=== PATIENT | female | born 1990 | race African-American/Black ===

== ENCOUNTER 2017-01-01 00:06 | Emergency (ER) | payer MEDICAID ==
[~2017-01-01] VITALS: Ht 162.6 cm; Wt 80.3 kg
[~2017-01-01 00:06] MED LIST: ALBUTEROL SULF8.5 GM INH; CHERATUSSIN AC118 ML PO; GUAIFENESIN400 MG PO; MACROBID 100 M100 MG PO; NKM; ZITHROMAX250 MG ORAL
--- NOTE | 2017-01-01 00:34 | Emergency Room Report ---
History of Present Illness General Chief Complaint: Lower Extremity Injury Source: Patient Present Illness HPI Is a 26-year-old female with no past medical history. She presents with chief complaint of left great toe pain. Onset for 2 weeks but worse in the last 2 days. Pain is to the base of the metatarsal joint. Worse with movement. Worse with pushing off. No trauma. No fever or chills. Denies any other complaint. Pain is 9/10 when she walking. Allergies: Coded Allergies: No Known Allergies (Verified Allergy, Unknown, 01/21/08) Patient History Past Medical History: see triage record, old chart reviewed Past Surgical History: none Pertinent Family History: none Social History: Denies: smoking Last Menstrual Period: DEC 17 Now: No Immunizations: other Reviewed Nursing Documentation: PMH: Agreed, PSxH: Agreed Nursing Documentation-PMH Past Medical History: No Stated History Review of Systems Eye: Denies: eye pain, blurred vision ENT: Denies: ear pain, nose congestion, throat swelling Respiratory: Denies: cough, shortness of breath Cardiovascular: Denies: chest pain, palpitations Gastrointestinal: Denies: abdominal pain, diarrhea, nausea, vomiting Musculoskeletal: Reports: joint pain, Denies: back pain Skin: Denies: rash Neurological: Denies: headache, numbness Endocrine: Denies: increased thirst, increased urine Hematologic/Lymphatic: Denies: easy bruising All Other Systems: negative except mentioned in HPI Physical Exam Vital Signs Date Time Temp Pulse Resp B/P (MAP) Pulse Ox O2 Delivery O2 Flow Rate FiO2 01/01/17 00:18 98.2 88 18 145/92 98 vitals normal Sp02 EP Interpretation: reviewed, normal General Appearance: well appearing, no apparent distress, alert Head: normocephalic, atraumatic Eyes: bilateral eye PERRL, bilateral eye EOMI ENT: hearing grossly normal, normal pharynx Neck: full range of motion, supple, no meningismus Respiratory: chest non-tender, lungs clear, normal breath sounds Cardiovascular #1: regular rate, rhythm, no murmur Gastrointestinal: normal bowel sounds, non tender, no mass, no organomegaly, no bruit, non-distended Musculoskeletal: back normal, gait/station normal, normal range of motion, tender - To her over the base of the left first metatarsal joint. No edema. No breath. No redness. Dorsalis pedis pulse 2+. Psychiatric: mood/affect normal Skin: warm/dry Medical Decision Making Diagnostic Impression: Primary Impression: Toe joint pain Qualified Codes: M25.572 - Pain in left ankle and joints of left foot ER Course Toe with joint pain. No evidence of infection. Is not warm or has redness. Doubt gout. No evidence of septic joint. We'll discharge home. Other X-Ray Diagnostic Results Other X-Ray Diagnostic Results : X-Ray ordered: Left foot x-rays # of Views/Limited Vs Complete: 3 View Indication: Pain EP Interpretation: Yes Interpretation: no dislocation, no soft tissue swelling, no fractures Impression: No acute disease Interpreting ER Provider: Electronically signed by Primo George MD Last Vital Signs Date Time Temp Pulse Resp B/P (MAP) Pulse Ox O2 Delivery O2 Flow Rate FiO2 01/01/17 00:18 98.2 88 18 145/92 98 Status: improved Disposition: HOME, SELF-CARE Condition: Stable Scripts Ibuprofen* (MOTRIN*) 600 Mg Tablet 600 MG ORAL THREE TIMES A DAY, #30 TAB 0 Refills Prov: PRIMO GEORGE M.D. 01/01/17 Additional Instructions: Keep leg elevated as much as possible. Followup with your DrJulianna in 7 days. You may benefit from referred to see a flare breaker. Return if symptom worsen. PRIMO GEORGE M.D. Jan 01, 2017 00:34
[2017-01-01 00:36] VITALS: BP 145/92
[2017-01-01] MEDS ORDERED: IBUPROFEN600 MG ORAL (01:14)
[2017-01-01 01:36] VITALS: BP 139/85
[2017-01-01] MEDS ORDERED: Norco 5mg/325mg tab ORAL ONE (01:45)
[2017-01-01] MEDS ORDERED: Norco 5mg/325mg tab ONE (01:48)
[2017-01-01 01:55] VITALS: BP 139/85
--- NOTE | 2017-01-01 10:35 | Diagnostic Imaging Report ---
Indication: Pain Comparison: None Findings: 3 views of the left foot were obtained. No acute fractures, malalignment, erosions or periostitis are identified. Bone mineralization is within normal limits. Soft tissues are unremarkable. Impression: No acute findings
== END 2017-01-01 01:55 | disposition home or self-care (01) ==
LOC: EMR 00:39
DX: M25.572 Pain in left ankle and joints of left foot (principal); M79.675 Pain in left toe(s); M25.50 Pain in unspecified joint; M54.9 Dorsalgia, unspecified
CPT/HCPCS: 99284

== ENCOUNTER 2017-02-27 20:02 | Emergency (ER) | payer MEDICAID ==
[~2017-02-27] VITALS: Ht 165.1 cm; Wt 79.4 kg
[~2017-02-27 20:02] MED LIST changes: +IBUPROFEN600 MG ORAL
[2017-02-27] MEDS ORDERED: NKM (20:08)
[2017-02-27 20:13] VITALS: BP 146/86
--- NOTE | 2017-02-27 20:20 | Emergency Room Report ---
History of Present Illness General Chief Complaint: Complications Source: Patient Present Illness HPI The patient is a 26-year-old female presenting for vaginal bleeding and possibly . She states that last normal menstrual period was 02/08/17. She states that she has been sexual active with her boyfriend without protection or any contraceptive. She tested + preg at home 3 days ago and has had brown vaginal DC and spotting with urination. She also admits to vaginal itching. She denies abd pain, N, V, F, chills, back pain, foul odor discharge, dizziness, PLEITEZ, swelling Allergies: Coded Allergies: No Known Allergies (Verified Allergy, Unknown, 01/21/08) Patient History Past Medical History: see triage record Pertinent Family History: none Last Menstrual Period: 02/08/17 : 3 Para: 1 Reviewed Nursing Documentation: PMH: Agreed, PSxH: Agreed Nursing Documentation-PMH Past Medical History: No Stated History Review of Systems All Other Systems: negative except mentioned in HPI Physical Exam Vital Signs Date Time Temp Pulse Resp B/P (MAP) Pulse Ox O2 Delivery O2 Flow Rate FiO2 02/27/17 20:05 98.8 89 14 150/88 100 Room Air Sp02 EP Interpretation: reviewed, normal General Appearance: no apparent distress, alert, GCS 15, non-toxic Head: normocephalic, atraumatic Eyes: bilateral eye normal inspection, bilateral eye PERRL Gastrointestinal: normal bowel sounds, non tender, soft, non-distended, no guarding, no rebound Genitourinary: normal inspection, no CVA tenderness Musculoskeletal: back normal, gait/station normal, normal range of motion, non- tender Neurologic: alert, oriented x3, responsive, motor strength/tone normal, sensory intact, speech normal Psychiatric: judgement/insight normal, memory normal, mood/affect normal, no suicidal/homicidal ideation Skin: normal color, no rash, warm/dry, well hydrated Medical Decision Making PA Attestation Dr. Chavira is my supervising physician. Patient management was discussed with my supervising physician Diagnostic Impression: Primary Impression: BV (bacterial vaginosis) ER Course The patient is a 26-year-old female presenting for vaginal bleeding, discharge, and possibly . Differential diagnoses considered include but not limited to Early , threatened , UTI, BV, among others PE: Vitals WNL. NAD. Abdomen: Normal appearance. Non distended. No ecchymosis. Normal BS. Non TTP. No McBurney point tenderness. No guarding. No CVA tenderness UA: negative nitrites. + for squamous epithelial cells Urine preg: + The patient discharged home and told to followup with OB as soon as possible. She'll be treated with Flagyl. ER precautions are given Laboratory Tests Test 02/27/17 20:10 Urine Color Yellow Urine Appearance Slightly cloudy Urine pH 6.5 (4.5-8.0) Urine Specific Ferdinand 1.015 (1.005-1.035) Urine Protein Negative (NEGATIVE) Urine Glucose (UA) Negative (NEGATIVE) Urine Ketones Negative (NEGATIVE) Urine Occult Blood 2+ (NEGATIVE) H Urine Nitrite Negative (NEGATIVE) Urine Bilirubin Negative (NEGATIVE) Urine Urobilinogen Normal MG/DL (0.0-1.0) Urine Leukocyte Esterase 1+ (NEGATIVE) H Urine RBC 0-2 /HPF (0 - 2) Urine WBC 2-4 /HPF (0 - 2) Urine Squamous Epithelial Cells Moderate /LPF (NONE/OCC) H Urine Bacteria Few /HPF (NONE) Urine HCG, Qualitative Positive Lab Results Impression UA: negative nitrites. + for squamous epithelial cells Urine preg: + Last Vital Signs Date Time Temp Pulse Resp B/P (MAP) Pulse Ox O2 Delivery O2 Flow Rate FiO2 02/27/17 20:13 98.8 15 146/86 100 Room Air 02/27/17 20:05 89 Status: improved Disposition: HOME, SELF-CARE Condition: Improved Scripts Metronidazole* (FLAGYL*) 500 Mg Tablet 500 MG ORAL BID, #14 TAB 0 Refills Prov: DULCE SWEET 02/27/17 DULCE SWEET Feb 27, 2017 20:20
[2017-02-27 20:32] LABS: APPEARANCE,URINE SLIGHTLY CLOUDY; KETONES,URINE NEGATIVE (NEGATIVE); LEUKOCYTE ESTERASE ,URINE 1+ (NEGATIVE); NITRITE,URINE NEGATIVE (NEGATIVE); PH,URINE 6.5 (4.5-8.0); PROTEIN,URINE NEGATIVE (NEGATIVE); UROBILINOGEN,URINE NORMAL MG/DL (0.0-1.0)
[2017-02-27 20:43] LABS: RBC,URINE 0-2 /HPF (0 - 2)
[2017-02-27 20:44] LABS: BACTERIA,URINE FEW /HPF; SQUAMOUS EPITHELIAL CELL,UR MODERATE /LPF (NONE/OCC)
[2017-02-27] MEDS ORDERED: METRONIDAZOLE500 MG ORAL (20:57)
[2017-02-27 21:03] VITALS: BP 146/86
== END 2017-02-27 21:03 | disposition home or self-care (01) ==
LOC: EMR 20:30
DX: N76.0 Acute vaginitis (principal); N93.9 Abnormal uterine and vaginal bleeding, unspecified
CPT/HCPCS: 81003; 81025; 99283

== ENCOUNTER 2017-03-12 18:26 | Emergency (ER) | payer MEDICAID ==
[~2017-03-12] VITALS: Ht 165.1 cm; Wt 77.6 kg
[~2017-03-12 18:26] MED LIST changes: +METRONIDAZOLE500 MG ORAL
[2017-03-12 19:11] LABS: BASOPHILS % (AUTO) 0.7 % (0.0-2.0); EOSINOPHILS % (AUTO) 0.2 % (0.0-3.0); HEMATOCRIT 40.8 % (37.0-47.0); HEMOGLOBIN 12.4 G/DL (12.0-16.0); LYMPHOCYTES % (AUTO) 26.1 % (20.0-45.0); MEAN CORPUSCULAR VOLUME 90 FL (80-99); MONOCYTES % (AUTO) 4.9 % (1.0-10.0); NEUTROPHILS % (AUTO) 68.2 % (45.0-75.0); PLATELET COUNT 255 K/UL (150-450); RED BLOOD COUNT 4.54 M/UL (4.20-5.40); RED CELL DISTRIBUTION WIDTH 11.6 % (11.6-14.8); WHITE BLOOD COUNT 12.6 K/UL (4.8-10.8)
[2017-03-12 19:27] LABS: ANION GAP 10 mmol/L (5-15); BLOOD UREA NITROGEN 8 mg/dL (7-18); CALCIUM 9.5 MG/DL (8.5-10.1); CARBON DIOXIDE 25 MMOL/L (21-32); CHLORIDE 104 MMOL/L (98-107); POTASSIUM 3.5 MMOL/L (3.5-5.1); SODIUM 139 MMOL/L (136-145)
[2017-03-12 19:31] LABS: ALANINE AMINOTRANSFERASE 17 U/L (12-78); ALBUMIN 3.9 G/DL (3.4-5.0); ALBUMIN/GLOBULIN RATIO 0.8 (1.0-2.7); ALKALINE PHOSPHATASE 84 U/L (46-116); ASPARTATE AMINO TRANSFERASE 13 U/L (15-37); BILIRUBIN,TOTAL 0.5 MG/DL (0.2-1.0)
[2017-03-12 22:00] VITALS: BP 113/64
[2017-03-12 22:05] VITALS: BP 113/64
--- NOTE | 2017-03-13 10:30 | Diagnostic Imaging Report ---
Indication:Pelvic pain Technique: Grayscale and duplex Doppler imaging of the pelvis performed utilizing a transabdominal scan and endovaginal scan. Comparison: None Findings: No intrauterine demonstrated. A 6 mm endometrial stripe demonstrated. Uterus is mildly heterogeneous. There is a 1.2 cm echogenic focus in the right ovary likely a hemorrhagic cyst. Follicles noted in addition within the right ovary. Definite extraovarian mass is not visualized. However there is a small moderate free fluid with echoes suggestive of hemoperitoneum. This could be due to a rupture of a hemorrhagic cyst. Ectopic is not excluded. Please correlate clinically and obtain followup is needed. There is a 1.5 cm left ovarian cyst noted. Impression: Findings suggestive of hemoperitoneum with low-level echoes within the free fluid in the cul-de-sac. No intrauterine demonstrated. Possibility of ectopic should be considered. No adnexal mass distally seen. Please correlate with quantitative beta-hCG. Followup recommended. Small echogenic focus in the right ovary probably hemorrhagic cyst. Simple cyst 1.5 CM in the left ovary. [facility] has communicated the preliminary results to the Emergency Department. Their findings are largely concordant with this report.
--- NOTE | 2017-03-14 22:22 | Emergency Room Report ---
History of Present Illness General Chief Complaint: Complications Source: Patient Present Illness HPI 26-year-old female presents ED for evaluation. Patient states that last week she had some lower abdominal pain and has some tissue clots. She states she is . Was seen at [facility] today and it did not sound cannot find anything. Was told that she may have an ectopic I was asked to come to the emergency room. Patient denies any abdominal pain at this time. Denies any bleeding or discharge. No other aggravating relieving factors. Denies any other associated symptoms Allergies: Coded Allergies: No Known Allergies (Verified Allergy, Unknown, 01/21/08) Patient History Past Medical History: none Past Surgical History: none Pertinent Family History: none Social History: Denies: smoking, alcohol use, drug use Last Menstrual Period: 02/08/17 Now: No Immunizations: UTD Reviewed Nursing Documentation: PMH: Agreed, PSxH: Agreed Nursing Documentation-PMH Past Medical History: No Stated History Review of Systems All Other Systems: negative except mentioned in HPI Physical Exam Vital Signs Date Time Temp Pulse Resp B/P (MAP) Pulse Ox O2 Delivery O2 Flow Rate FiO2 03/12/17 18:31 98.2 91 18 122/82 100 Room Air Sp02 EP Interpretation: reviewed, normal General Appearance: no apparent distress, alert, GCS 15, non-toxic Head: normocephalic, atraumatic Eyes: bilateral eye normal inspection, bilateral eye PERRL ENT: hearing grossly normal, normal pharynx, no angioedema, normal voice Neck: full range of motion, supple/symm/no masses Respiratory: chest non-tender, lungs clear, normal breath sounds, speaking full sentences Cardiovascular #1: regular rate, rhythm, no edema Cardiovascular #2: 2+ carotid (R), 2+ carotid (L), 2+ radial (R), 2+ radial (L) , 2+ dorsalis pedis (R), 2+ dorsalis pedis (L) Gastrointestinal: normal bowel sounds, non tender, soft, non-distended, no guarding, no rebound Rectal: deferred Genitourinary: normal inspection, no CVA tenderness Musculoskeletal: back normal, gait/station normal, normal range of motion, non- tender Neurologic: alert, oriented x3, responsive, motor strength/tone normal, sensory intact, speech normal Psychiatric: judgement/insight normal, memory normal, mood/affect normal, no suicidal/homicidal ideation Reflexes: 3+ bicep (R), 3+ bicep (L), 3+ tricep (R), 3+ tricep (L), 3+ knee (R) , 3+ knee (L) Skin: normal color, no rash, warm/dry, well hydrated Lymphatic: no adenopathy Medical Decision Making Diagnostic Impression: Primary Impression: Complication of Qualified Codes: O26.91 - related conditions, unspecified, first trimester ER Course Hospital Course 26-year-old female presents to ED for evaluation. Since by family practice clinic to rule out ectopic emergency Differential diagnoses include: gastrits, gastroenterits, ectopic , ovarian torsion/cyst, UTI Clinical course Patient placed on stretcher in ED. After initial history and physical I ordered labs, IV fluids and pelvic ultrasound. Labs-no leukocytosis, electrolytes okay, beta hCG > 8000 Pelvic ultrasound- no IUP detected, no obvious adenxal mass noted, but concern of ectopic should be considered I spoke to INNER TUBE TUBER MACHINE OPERATOR Dr Beard. Given that patient has no pain or bleeding, patient can be safely discharged with outpatient followup. Discussed findings with the patient and she will followup with INNER TUBE TUBER MACHINE OPERATOR Diagnosis - complication of Stable and discharged to home. Followup with PMD/INNER TUBE TUBER MACHINE OPERATOR. Return to ED if symptoms recur or worsen Labs Test 03/12/17 18:50 White Blood Count 12.6 K/UL (4.8-10.8) Red Blood Count 4.54 M/UL (4.20-5.40) Hemoglobin 12.4 G/DL (12.0-16.0) Hematocrit 40.8 % (37.0-47.0) Mean Corpuscular Volume 90 FL (80-99) Mean Corpuscular Hemoglobin 27.4 PG (27.0-31.0) Mean Corpuscular Hemoglobin Concent 30.5 G/DL (32.0-36.0) Red Cell Distribution Width 11.6 % (11.6-14.8) Platelet Count 255 K/UL (150-450) Mean Platelet Volume 7.2 FL (6.5-10.1) Neutrophils (%) (Auto) 68.2 % (45.0-75.0) Lymphocytes (%) (Auto) 26.1 % (20.0-45.0) Monocytes (%) (Auto) 4.9 % (1.0-10.0) Eosinophils (%) (Auto) 0.2 % (0.0-3.0) Basophils (%) (Auto) 0.7 % (0.0-2.0) Prothrombin Time 10.3 SEC (9.30-11.50) Prothromb Time International Ratio 1.0 (0.9-1.1) Activated Partial Thromboplast Time 27 SEC (23-33) Sodium Level 139 MMOL/L (136-145) Potassium Level 3.5 MMOL/L (3.5-5.1) Chloride Level 104 MMOL/L (98-107) Carbon Dioxide Level 25 MMOL/L (21-32) Anion Gap 10 mmol/L (5-15) Blood Urea Nitrogen 8 mg/dL (7-18) Creatinine 1.0 MG/DL (0.55-1.30) Estimat Glomerular Filtration Rate > 60 mL/min (>60) Glucose Level 90 MG/DL (74-106) Calcium Level 9.5 MG/DL (8.5-10.1) Total Bilirubin 0.5 MG/DL (0.2-1.0) Aspartate Amino Transf (AST/SGOT) 13 U/L (15-37) Alanine Aminotransferase (ALT/SGPT) 17 U/L (12-78) Alkaline Phosphatase 84 U/L (46-116) Total Protein 8.5 G/DL (6.4-8.2) Albumin 3.9 G/DL (3.4-5.0) Globulin 4.6 g/dL Albumin/Globulin Ratio 0.8 (1.0-2.7) Lipase 104 U/L (73-393) Human Chorionic Gonadotropin, Quant 8616 mIU/mL (1-6) CT/MRI/US Diagnostic Results CT/MRI/US Diagnostic Results : Imaging Test Ordered: OB US Impression Findings suggestive of hemoperitoneum with low-level echoes within the free fluid in the cul-de-sac. No intrauterine demonstrated. Possibility of ectopic should be considered. No adnexal mass distally seen. Please correlate with quantitative beta-hCG. Followup recommended. Small echogenic focus in the right ovary probably hemorrhagic cyst. Simple cyst 1.5 CM in the left ovary. Last Vital Signs Date Time Temp Pulse Resp B/P (MAP) Pulse Ox O2 Delivery O2 Flow Rate FiO2 03/12/17 22:05 98.4 61 14 113/64 97 Room Air Status: improved Disposition: HOME, SELF-CARE Condition: Stable Referrals: Kaelyn SARABIAREFERRING (PCP) EMMANUEL BEARD Patient Instructions: Ectopic , [id number] CAIN MOSQUEDA M.D. Mar 14, 2017 22:22
--- NOTE | 2017-03-14 22:22 | Emergency Room Report ---
History of Present Illness General Chief Complaint: Complications Source: Patient Present Illness HPI 26-year-old female presents ED for evaluation. Patient states that last week she had some lower abdominal pain and has some tissue clots. She states she is . Was seen at [facility] today and it did not sound cannot find anything. Was told that she may have an ectopic I was asked to come to the emergency room. Patient denies any abdominal pain at this time. Denies any bleeding or discharge. No other aggravating relieving factors. Denies any other associated symptoms Allergies: Coded Allergies: No Known Allergies (Verified Allergy, Unknown, 01/21/08) Patient History Past Medical History: none Past Surgical History: none Pertinent Family History: none Social History: Denies: smoking, alcohol use, drug use Last Menstrual Period: 02/08/17 Now: No Immunizations: UTD Reviewed Nursing Documentation: PMH: Agreed, PSxH: Agreed Nursing Documentation-PMH Past Medical History: No Stated History Review of Systems All Other Systems: negative except mentioned in HPI Physical Exam Vital Signs Date Time Temp Pulse Resp B/P (MAP) Pulse Ox O2 Delivery O2 Flow Rate FiO2 03/12/17 18:31 98.2 91 18 122/82 100 Room Air Sp02 EP Interpretation: reviewed, normal General Appearance: no apparent distress, alert, GCS 15, non-toxic Head: normocephalic, atraumatic Eyes: bilateral eye normal inspection, bilateral eye PERRL ENT: hearing grossly normal, normal pharynx, no angioedema, normal voice Neck: full range of motion, supple/symm/no masses Respiratory: chest non-tender, lungs clear, normal breath sounds, speaking full sentences Cardiovascular #1: regular rate, rhythm, no edema Cardiovascular #2: 2+ carotid (R), 2+ carotid (L), 2+ radial (R), 2+ radial (L) , 2+ dorsalis pedis (R), 2+ dorsalis pedis (L) Gastrointestinal: normal bowel sounds, non tender, soft, non-distended, no guarding, no rebound Rectal: deferred Genitourinary: normal inspection, no CVA tenderness Musculoskeletal: back normal, gait/station normal, normal range of motion, non- tender Neurologic: alert, oriented x3, responsive, motor strength/tone normal, sensory intact, speech normal Psychiatric: judgement/insight normal, memory normal, mood/affect normal, no suicidal/homicidal ideation Reflexes: 3+ bicep (R), 3+ bicep (L), 3+ tricep (R), 3+ tricep (L), 3+ knee (R) , 3+ knee (L) Skin: normal color, no rash, warm/dry, well hydrated Lymphatic: no adenopathy Medical Decision Making Diagnostic Impression: Primary Impression: Complication of Qualified Codes: O26.91 - related conditions, unspecified, first trimester ER Course Hospital Course 26-year-old female presents to ED for evaluation. Since by family practice clinic to rule out ectopic emergency Differential diagnoses include: gastrits, gastroenterits, ectopic , ovarian torsion/cyst, UTI Clinical course Patient placed on stretcher in ED. After initial history and physical I ordered labs, IV fluids and pelvic ultrasound. Labs-no leukocytosis, electrolytes okay, beta hCG > 8000 Pelvic ultrasound- no IUP detected, no obvious adenxal mass noted, but concern of ectopic should be considered I spoke to LINOLEUM INSTALLER Dr Beard. Given that patient has no pain or bleeding, patient can be safely discharged with outpatient followup. Discussed findings with the patient and she will followup with LINOLEUM INSTALLER Diagnosis - complication of Stable and discharged to home. Followup with PMD/LINOLEUM INSTALLER. Return to ED if symptoms recur or worsen Labs Test 03/12/17 18:50 White Blood Count 12.6 K/UL (4.8-10.8) Red Blood Count 4.54 M/UL (4.20-5.40) Hemoglobin 12.4 G/DL (12.0-16.0) Hematocrit 40.8 % (37.0-47.0) Mean Corpuscular Volume 90 FL (80-99) Mean Corpuscular Hemoglobin 27.4 PG (27.0-31.0) Mean Corpuscular Hemoglobin Concent 30.5 G/DL (32.0-36.0) Red Cell Distribution Width 11.6 % (11.6-14.8) Platelet Count 255 K/UL (150-450) Mean Platelet Volume 7.2 FL (6.5-10.1) Neutrophils (%) (Auto) 68.2 % (45.0-75.0) Lymphocytes (%) (Auto) 26.1 % (20.0-45.0) Monocytes (%) (Auto) 4.9 % (1.0-10.0) Eosinophils (%) (Auto) 0.2 % (0.0-3.0) Basophils (%) (Auto) 0.7 % (0.0-2.0) Prothrombin Time 10.3 SEC (9.30-11.50) Prothromb Time International Ratio 1.0 (0.9-1.1) Activated Partial Thromboplast Time 27 SEC (23-33) Sodium Level 139 MMOL/L (136-145) Potassium Level 3.5 MMOL/L (3.5-5.1) Chloride Level 104 MMOL/L (98-107) Carbon Dioxide Level 25 MMOL/L (21-32) Anion Gap 10 mmol/L (5-15) Blood Urea Nitrogen 8 mg/dL (7-18) Creatinine 1.0 MG/DL (0.55-1.30) Estimat Glomerular Filtration Rate > 60 mL/min (>60) Glucose Level 90 MG/DL (74-106) Calcium Level 9.5 MG/DL (8.5-10.1) Total Bilirubin 0.5 MG/DL (0.2-1.0) Aspartate Amino Transf (AST/SGOT) 13 U/L (15-37) Alanine Aminotransferase (ALT/SGPT) 17 U/L (12-78) Alkaline Phosphatase 84 U/L (46-116) Total Protein 8.5 G/DL (6.4-8.2) Albumin 3.9 G/DL (3.4-5.0) Globulin 4.6 g/dL Albumin/Globulin Ratio 0.8 (1.0-2.7) Lipase 104 U/L (73-393) Human Chorionic Gonadotropin, Quant 8616 mIU/mL (1-6) CT/MRI/US Diagnostic Results CT/MRI/US Diagnostic Results : Imaging Test Ordered: OB US Impression Findings suggestive of hemoperitoneum with low-level echoes within the free fluid in the cul-de-sac. No intrauterine demonstrated. Possibility of ectopic should be considered. No adnexal mass distally seen. Please correlate with quantitative beta-hCG. Followup recommended. Small echogenic focus in the right ovary probably hemorrhagic cyst. Simple cyst 1.5 CM in the left ovary. Last Vital Signs Date Time Temp Pulse Resp B/P (MAP) Pulse Ox O2 Delivery O2 Flow Rate FiO2 03/12/17 22:05 98.4 61 14 113/64 97 Room Air Status: improved Disposition: HOME, SELF-CARE Condition: Stable Referrals: Kaelyn SARABIAREFERRING (PCP) EMMANUEL BEARD Patient Instructions: Ectopic , [id number] CAIN MOSQUEDA M.D. Mar 14, 2017 22:22
== END 2017-03-12 22:05 | disposition home or self-care (01) ==
LOC: EMR 18:35
DX: O26.891 Other specified pregnancy related conditions, first trimester (principal); R10.9 Unspecified abdominal pain
CPT/HCPCS: 36415; 76801; 76830; 80053; 83690; 84702; 85025; 85610; 85730; 96360; 99284

== ENCOUNTER 2017-03-20 04:35 | Emergency (ER) | payer MEDICAID ==
[~2017-03-20] VITALS: Ht 165.1 cm; Wt 77.1 kg
[2017-03-20] VITALS (13 sets, daily range): BP systolic 100–124; BP diastolic 57–79
[2017-03-20] MEDS ORDERED: Morphine Sulfate 4mg/ml Inj IVP ONE ×2 (04:45→07:00)
--- NOTE | 2017-03-20 04:49 | Emergency Room Report ---
History of Present Illness General Chief Complaint: Abdominal Pain Source: Patient Present Illness HPI This is a 26-year-old female 5 para 1 who presents with chief complaint abdominal pain. She was here several weeks ago for positive . Beta hCG here was in the 8000 but ultrasound show small amount of blood in the pelvis no IUP. She did not have any pain and never followup with [employer]. She woke up about 2 hours ago with severe lower trauma pain. Pain is sharp. No bleeding. No nausea no vomiting. Denies any trauma. Pain is 10 out of 10. Allergies: Coded Allergies: No Known Allergies (Verified , 01/21/08) Patient History Past Medical History: see triage record, old chart reviewed Past Surgical History: other Pertinent Family History: none Social History: Denies: smoking Last Menstrual Period: Feb Now: No Immunizations: other Reviewed Nursing Documentation: PMH: Agreed, PSxH: Agreed Nursing Documentation-PMH Hx Cardiac Problems: Yes Review of Systems Eye: Denies: eye pain, blurred vision ENT: Denies: ear pain, nose congestion, throat swelling Respiratory: Denies: cough, shortness of breath Cardiovascular: Denies: chest pain, palpitations Gastrointestinal: Reports: abdominal pain, Denies: diarrhea, nausea, vomiting Musculoskeletal: Denies: back pain, joint pain Skin: Denies: rash Neurological: Denies: headache, numbness Endocrine: Denies: increased thirst, increased urine Hematologic/Lymphatic: Denies: easy bruising All Other Systems: negative except mentioned in HPI Physical Exam Vital Signs Date Time Temp Pulse Resp B/P (MAP) Pulse Ox O2 Delivery O2 Flow Rate FiO2 03/20/17 04:31 99.0 81 17 145/97 97 Room Air vitals normal Sp02 EP Interpretation: reviewed, normal General Appearance: well appearing, no apparent distress, alert Head: normocephalic, atraumatic Eyes: bilateral eye PERRL, bilateral eye EOMI ENT: hearing grossly normal, normal pharynx Neck: full range of motion, supple, no meningismus Respiratory: chest non-tender, lungs clear, normal breath sounds Cardiovascular #1: regular rate, rhythm, no murmur Gastrointestinal: normal bowel sounds, no mass, no organomegaly, no bruit, non- distended, tenderness - Mild, diffuse Musculoskeletal: back normal, gait/station normal, normal range of motion Psychiatric: mood/affect normal Skin: warm/dry Medical Decision Making Diagnostic Impression: Primary Impression: Ruptured ectopic ER Course Patient presents with acute pelvic/abdominal pain. Her beta-hCG dropped from 8616 to 5291. Ultrasound today showed moderate amount of hemorrhage in the left pelvic area and blood around the uterus. There was small amount of lead in the abdomen. This is concerning for ruptured ectopic. Patient has been hemodynamically stable. Dr. Wilhelm, her [employer] SUPERVISOR, paged. I will sign out to Dr. De Paz for final disposition Lab Results Impression labs unremarkable except for hCG of 5291 CT/MRI/US Diagnostic Results CT/MRI/US Diagnostic Results : Imaging Test Ordered: Pelvic US Impression read by trouble clerk. Moderate amount of blood around the left adnexal and uterus. Small amount of blood in the pelvis. Last Vital Signs Date Time Temp Pulse Resp B/P (MAP) Pulse Ox O2 Delivery O2 Flow Rate FiO2 03/20/17 04:31 99.0 81 17 145/97 97 Room Air Status: improved Disposition: ADMITTED INPATIENT Condition: Serious AMBROSE GRANT M.D. Mar 20, 2017 04:49
[2017-03-20 05:04] LABS: BASOPHILS % (AUTO) 0.4 % (0.0-2.0); EOSINOPHILS % (AUTO) 0.2 % (0.0-3.0); MEAN CORPUSCULAR HEMOGLOBIN 28.3 PG (27.0-31.0); MEAN CORPUSCULAR HGB CONC 31.9 G/DL (32.0-36.0); MEAN CORPUSCULAR VOLUME 89 FL (80-99); MEAN PLATELET VOLUME 7.4 FL (6.5-10.1); MONOCYTES % (AUTO) 4.9 % (1.0-10.0); NEUTROPHILS % (AUTO) 83.5 % (45.0-75.0); PLATELET COUNT 237 K/UL (150-450); RED BLOOD COUNT 4.17 M/UL (4.20-5.40); RED CELL DISTRIBUTION WIDTH 11.6 % (11.6-14.8); WHITE BLOOD COUNT 15.4 K/UL (4.8-10.8)
[2017-03-20 05:08] LABS: ANION GAP 7 mmol/L (5-15); CALCIUM 8.6 MG/DL (8.5-10.1); CARBON DIOXIDE 26 MMOL/L (21-32); CHLORIDE 106 MMOL/L (98-107); CREATININE 0.9 MG/DL (0.55-1.30); GLOMERULAR FILTRATION RATE > 60 mL/min (>60); POTASSIUM 3.6 MMOL/L (3.5-5.1); SODIUM 139 MMOL/L (136-145)
[2017-03-20 05:52] LABS: APPEARANCE,URINE CLEAR; KETONES,URINE 1+ (NEGATIVE); LEUKOCYTE ESTERASE ,URINE 2+ (NEGATIVE); NITRITE,URINE NEGATIVE (NEGATIVE); PH,URINE 5 (4.5-8.0); PROTEIN,URINE 2+ (NEGATIVE); UROBILINOGEN,URINE NORMAL MG/DL (0.0-1.0)
[2017-03-20 06:09] LABS: BACTERIA,URINE FEW /HPF; SQUAMOUS EPITHELIAL CELL,UR FEW /LPF (NONE/OCC)
[2017-03-20] MEDS ORDERED: Oxytocin 10 units/vial ONE (10:16)
[2017-03-20] MEDS ORDERED: Methylergonovine 0.2mg/ml Inj IM ONE (10:17)
[2017-03-20] MEDS ORDERED: Ropivacaine 5mg/ml Vial 30ml INJ ONE (10:17)
[2017-03-20] MEDS ORDERED: NS Irrig 1000ml ONE (10:30)
[2017-03-20] MEDS ORDERED: Propofol 200mg/20ml IV ONE (10:30)
[2017-03-20] MEDS ORDERED: fentaNYL 100 mcg/2 mL IV ONE (10:30)
[2017-03-20] MEDS ORDERED: Vecuronium 10 MG VIAL ONE (10:30)
[2017-03-20] MEDS ORDERED: Neostigmine 1mg/ml 10ml Inj ONE (10:30)
[2017-03-20] MEDS ORDERED: Midazolam 2mg/2ml Inj ONE (10:30)
[2017-03-20] MEDS ORDERED: Glycopyrrolate 0.2mg/ml 1ml Vial ONE (10:30)
[2017-03-20] MEDS ORDERED: Metoclopramide 10mg/2ml Inj ONE (10:30)
[2017-03-20] MEDS ORDERED: Lidocaine 1% MPF 10mg/ml 5ml ONE (10:30)
[2017-03-20] MEDS ORDERED: Succinylcholine 20mg/ml 10ml vial ONE (10:30)
[2017-03-20] MEDS ORDERED: NS Irrig 1000ml IRRIG ONE (11:27)
--- NOTE | 2017-03-20 11:32 | Anethesia Preoperative Eval ---
Anesthesia Pre-op PMH/ROS General Date of Evaluation: Mar 20, 2017 Time of Evaluation: 10:30 Anesthesiologist: elizabet ASA Score: ASA 2 Mallampati Score Class I : Soft palate, uvula, fauces, pillars visible Class II: Soft palate, uvula, fauces visible Class III: Soft palate, base of uvula visible Class IV: Only hard plate visible Mallampati Classification: Class II Surgeon: kalia Diagnosis: ectopic preg Surgical Procedure: laparoscopic removal of ectopic Anesthesia History: none Family History: no anesthesia problems Allergies: Coded Allergies: No Known Allergies (Verified , 01/21/08) Medications: see eMAR Past Medical History Cardiovascular: Denies: HTN, CAD, MT, valve dz, arrhythmia, other Pulmonary: Denies: asthma, COPD, JATINDER, other Gastrointestinal/Genitourinary: Denies: GERD, CRI, ESRD, other Neurologic/Psychiatric: Denies: dementia, CVA, depression/anxiety, TIA, other Endocrine: Denies: DM, hypothyroidism, steroids, other HEENT: Denies: cataract (L), cataract (R), glaucoma, [place] (L), [place] (R), other Hematology/Immune: Denies: anemia, DVT, bleeding disorder, other Musculoskeletal/Integumentary: Denies: OA, RA, DJD, DDD, edema, other Other: other - mmj PMH Narrative: ectopic Anesthesia Pre-op Phys. Exam Physician Exam Last Vital Signs Date Time Temp Pulse Resp B/P (MAP) Pulse Ox O2 Delivery O2 Flow Rate FiO2 03/20/17 10:17 99.0 79 20 116/79 97 Room Air Constitutional: NAD Neurologic: CN 2-12 intact Respiratory: other - cold symptoms Gastrointestinal: S/NT/ND Airway Exam Mallampati Score: Class II MO: full TMD: 3fb ROM: full Dentures: no upper, no lower Anesthesia Pre-op A/P Labs Hematology Test 03/20/17 04:56 White Blood Count 15.4 K/UL (4.8-10.8) H Red Blood Count 4.17 M/UL (4.20-5.40) L Hemoglobin 11.8 G/DL (12.0-16.0) L Hematocrit 37.1 % (37.0-47.0) Mean Corpuscular Volume 89 FL (80-99) Mean Corpuscular Hemoglobin 28.3 PG (27.0-31.0) Mean Corpuscular Hemoglobin Concent 31.9 G/DL (32.0-36.0) L Red Cell Distribution Width 11.6 % (11.6-14.8) Platelet Count 237 K/UL (150-450) Mean Platelet Volume 7.4 FL (6.5-10.1) Neutrophils (%) (Auto) 83.5 % (45.0-75.0) H Lymphocytes (%) (Auto) 11.0 % (20.0-45.0) L Monocytes (%) (Auto) 4.9 % (1.0-10.0) Eosinophils (%) (Auto) 0.2 % (0.0-3.0) Basophils (%) (Auto) 0.4 % (0.0-2.0) Chemistry Test 03/20/17 04:56 Sodium Level 139 MMOL/L (136-145) Potassium Level 3.6 MMOL/L (3.5-5.1) Chloride Level 106 MMOL/L (98-107) Carbon Dioxide Level 26 MMOL/L (21-32) Anion Gap 7 mmol/L (5-15) Blood Urea Nitrogen 6 mg/dL (7-18) L Creatinine 0.9 MG/DL (0.55-1.30) Estimat Glomerular Filtration Rate > 60 mL/min (>60) Glucose Level 122 MG/DL (74-106) H Calcium Level 8.6 MG/DL (8.5-10.1) Human Chorionic Gonadotropin, Quant 5291 mIU/mL (1-6) H Studies Pre-op Studies: EKG - sr Risk Assessment & Plan Plan: general Status Change Before Surgery: No Pre-Antibiotics Drug: ancef Given Within 1 Hr of Incision: Yes Time Given: 10:30 DAR ORELLANA CRNA Mar 20, 2017 11:32
--- NOTE | 2017-03-20 12:09 | Pre-Procedure Note/Attestation ---
Pre-Procedure Note/Attestation Complete Prior to Procedure Planned Procedure: left Procedure Narrative: Laparoscopic treatment of Ectopic , Indications for Procedure Pre-Operative Diagnosis: Ectopic Attestation I attest that I discussed the nature of the procedure; its benefits; risks and complications; and alternatives (and the risks and benefits of such alternatives ), prior to the procedure, with the patient (or the patient's legal hostess party sales representative). I attest that, if there was a reasonable possibility of needing a blood transfusion, the patient (or the patient's legal hostess party sales representative) was given the [facility] standardized written summary, pursuant to the [place] Blood Safety Act ([place] Health and Safety Code # 1645, as amended). I attest that I re-evaluated the patient just prior to the surgery and that there has been no change in the patient's H&P, except as documented below:NONE VARGAS OLIVER Mar 20, 2017 12:09
--- NOTE | 2017-03-20 12:11 | Brief Operative Note ---
Immediate Post Operative Note Operative Note Pre-op Diagnosis: Ectopic Procedure: Laparoscopic Left Salpingectomy, partial Evacuation of hemoperitoneum D&C Post-op Diagnosis: same as pre-op plus - Hemoperitoneum Surgeon: Vargas Bryson MD Hand Chain Maker: NONE Anesthesiologist: Carol Cordero Anesthesia: general Specimen: yes - Left tube, partial Complications: none Condition: stable Fluids: LR @ 150 cc / hr Estimated Blood Loss: volume - 400 CC Drains: none Implant(s) used?: No VARGAS BRYSON Mar 20, 2017 12:11
[2017-03-20] MEDS ORDERED: Tylenol #3 tab (300mg/30mg) ORAL PRN ×2 (12:15→13:30)
[2017-03-20] MEDS ORDERED: Norco 5mg/325mg tab ORAL PRN (12:15)
[2017-03-20] MEDS ORDERED: HYDROmorphone 1mg/ml Carpuject SUBQ PRN (12:15)
--- NOTE | 2017-03-20 12:18 | Immediate Post-Op Evaluation ---
Immediate Post-Op Evalulation Immediate Post-Op Evalulation Procedure: lap removal of ectopic Date of Evaluation: Mar 20, 2017 Time of Evaluation: 12:15 IV Fluids: 1000 Estimated Blood Loss: 400 Blood Pressure Systolic: 124 Blood Pressure Diastolic: 51 Pulse Rate: 50 Respiratory Rate: 14 O2 Sat by Pulse Oximetry: 100 Temperature (Fahrenheit): 98.5 Pain Score (1-10): 0 Nausea: No Vomiting: No Complications none Patient Status: awake, reacts, patent Hydration Status: adequate Drug: ancef Given Within 1 Hr of Incision: Yes Time Given: 10:50 DAR ORELLANA CRNA Mar 20, 2017 12:18
--- NOTE | 2017-03-20 12:32 | 48 Hour Post Anesthesia Eval ---
Post Anesthesia Evaluation Procedure: lap removal of ectopic Date of Evaluation: Mar 20, 2017 Time of Evaluation: 12:32 Blood Pressure Systolic: 124 0: 57 Pulse Rate: 50 Respiratory Rate: 14 O2 Sat by Pulse Oximetry: 100 Airway: patent Nausea: No Vomiting: No Hydration Status: adequate Cardiopulmonary Status: stable Mental Status/LOC: patient returned to baseline Post-Anesthesia Complications: none Follow-up care needed: N/A DAR ORELLANA CRNA Mar 20, 2017 12:32
[2017-03-20] MEDS ORDERED: Norco 5mg/325mg tab ONE (13:12)
[2017-03-20] MEDS ORDERED: D5 1/2NS 1,000 ML IV SCH (13:15)
--- NOTE | 2017-03-20 14:37 | Diagnostic Imaging Report ---
Indication: Abdominal pain. Positive test a days ago Technique: Transabdominal and transvaginal images Comparison: 03/12/2017 Findings: Uterus measures 9 cm length by 4.1 cm AP. Endometrium measures 5 mm thick. No intrauterine demonstrated. Echogenic material as well as fluid is seen surrounding the uterus, may indicate cul-de-sac hemorrhage. This is considerably increased in extent from the prior study. Neither ovary is definitely identified. No definite myometrial abnormalities Impression: Limited exam with nonvisualization of the ovaries No intrauterine demonstrated Fluid and echogenic material surrounding the uterus, likely hemorrhage. Raises concern for ruptured ectopic This agrees with the preliminary interpretation provided overnight by [facility] teleradiology service.
--- NOTE | 2017-03-27 05:15 | Operative Note - Dictated ---
DATE OF OPERATION: 03/20/2017 PREOPERATIVE DIAGNOSIS: Ectopic . POSTOPERATIVE DIAGNOSIS: Ruptured ectopic with hemoperitoneum. SURGEON: Dc Hoskins M.D. ANESTHESIA: General. ANESTHESIOLOGIST: Carol Laughlin CRNA PROCEDURE PERFORMED: 1. Laparoscopic left salpingotomy and evacuation of hemoperitoneum. 2. Dilatation and curettage PROCEDURE IN DETAIL: After all the appropriate consents were signed, the patient was brought to the operating room and placed on table in supine position. General endotracheal anesthesia was induced without complication. The patient was then placed in dorsal lithotomy position. Perineum, vagina, and abdomen were prepped and draped in the usual fashion for the procedure. The patient was then examined under anesthesia. Cervix was identified and a endometrial curettage was performed. There were some products of curettage which were submitted to pathology. At this time, uterine manipulator was placed and the procedure began with the abdominal portion. Umbilical incision was made. Veress needle was advanced and the abdomen was insufflated to 15 mmHg. The patient was then examined laparoscopically after 10 mm trocar was placed in the abdomen. Abdomen was full of blood in the pelvis and extending to the liver edge. At this time, two additional trocars were placed in the midline and left lower quadrant. Evacuation of hemoperitoneum was undertaken initially to allow visualization of the ectopic . When this was partially completed just enough to visualize the tube on the left side the uterus was elevated and the tube was well visualized. It appeared to be a large ectopic with portion of the ectopic breaking through the tube and the tube was partially ruptured with active arterial oozing from the tube. The bleeder was now grasped and portion which was blown up and ruptured by ectopic was elevated and coagulation was applied. The area of the tubes was now carefully coagulated and segment which was ruptured was excised using sharp dissection and traction countertraction technique. At this time, additional hemostasis was required and after achieving hemostasis, hemoperitoneum was once again addressed and now thoroughly evacuated. Once this was completed, the abdomen was also thoroughly irrigated with several liters of saline solution and the debris and blood and saline was suctioned to clear the pelvis. Once this was completed, the area of tubal dissection was once again evaluated and was found to be completely hemostatic. All the other puncture sites were also evaluated as the trocars removed one after the another. Approximate blood loss was 400 mL. The patient was now placed in the supine position. After all the trocars were removed, the incisions were closed using 0 Vicryl suture at the fascia layer. The skin incisions were closed with Steri-Strips and benzoin. The patient was now awakened from general anesthesia and was transferred to the recovery room in excellent condition. She tolerated the procedure very well. Dc Hoskins M.D. DR: Xavier JOB#: [id number] CC:
== END 2017-03-20 10:19 | disposition home or self-care (01) ==
LOC: EDBD 04:35 → EMR 04:48 → EDBEDREQ 09:26 → EMR 10:19
DX: O00.102 Left tubal pregnancy without intrauterine pregnancy (principal)
CPT/HCPCS: 36415; 76830; 76856; 80048; 81003; 84702; 85025; 86850; 86900; 86901; 86920; 94003; 94150; 99285; J2250; J2405; J2590; J2710; J2765

== ENCOUNTER 2017-08-05 18:16 | Emergency (ER) | payer MEDICAID ==
[~2017-08-05] VITALS: Ht 162.6 cm; Wt 70.3 kg
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
[2017-08-05] MEDS ORDERED: Norco 5mg/325mg tab ORAL ONE (18:45)
[2017-08-05] MEDS ORDERED: IBUPROFEN600 MG ORAL (19:42)
[2017-08-05] MEDS ORDERED: ACETAMINOPHEN-1 EAC1 ORAL (19:42)
[2017-08-05 20:05] VITALS: BP 126/85
--- NOTE | 2017-08-06 15:06 | Diagnostic Imaging Report ---
Indication: Trauma Technique: XRAY Hand Complete L Comparison: None Findings: Limited exam as patient did not remove ring. Underlying pathology not entirely excluded. No definite evidence of acute fracture or dislocation. No focal soft tissue abnormality/defect appreciated. No retained foreign body. Impression: Negative exam. No definite evidence of acute fracture or dislocation.
== END 2017-08-05 21:18 | disposition home or self-care (01) ==
LOC: EMR 19:43
DX: S61.412A Laceration without foreign body of left hand, initial encounter (principal); X99.0XXA Assault by sharp glass, initial encounter; Y92.009 Unspecified place in unspecified non-institutional (private) residence as the place of occurrence of the external cause
CPT/HCPCS: 99284

== ENCOUNTER 2018-02-09 19:35 | Emergency (ER) | payer MEDICAID ==
[~2018-02-09] VITALS: Ht 162.6 cm; Wt 71.7 kg
[~2018-02-09 19:35] MED LIST changes: +ACETAMINOPHEN-1 EAC1 ORAL
[2018-02-09] MEDS ORDERED: AMOXICILLIN500 MG ORAL (20:16)
[2018-02-09] MEDS ORDERED: TESSALON PERLE100 MG ORAL (20:16)
[2018-02-09] MEDS ORDERED: TYLENOL EXTRA500 MG ORAL (20:16)
--- NOTE | 2018-02-09 20:16 | Emergency Room Report ---
History of Present Illness General Chief Complaint: Flu Like Symptoms Source: Patient Present Illness HPI 27-year-old female patient presents ER complaining of sore throat for the past several days. Also complaining of cough with sputum during this time. Denies hemoptysis. Denies fever, chest pain, shortness of breath. denies history of asthma or [place]. Denies recent travel or periods of immobilization, denies history of cancer. Denies recent surgery. reports runny nose during this time. Reports currently taking NyQuil and DayQuil for relief of symptoms. Reports she began to "lose" her voice yesterday but it is improved today, however states still has sore throat today. Reports ear fullness during this time. Denies hearing loss or tinnitus. Denies ear drainage. Allergies: Coded Allergies: No Known Allergies (Verified , 02/09/18) Patient History Past Medical History: see triage record Last Menstrual Period: jan 2018 Reviewed Nursing Documentation: PMH: Agreed; PSxH: Agreed Nursing Documentation-PMH Past Medical History: No Stated History Hx Cardiac Problems: No Review of Systems All Other Systems: negative except mentioned in HPI Physical Exam Vital Signs Date Time Temp Pulse Resp B/P (MAP) Pulse Ox O2 Delivery O2 Flow Rate FiO2 02/09/18 19:49 98.6 75 16 116/73 97 Room Air 98.6 Sp02 EP Interpretation: reviewed, normal General Appearance: well appearing, no apparent distress, alert, GCS 15, non- toxic Head: normocephalic, atraumatic Eyes: bilateral eye normal inspection, bilateral eye PERRL ENT: hearing grossly normal, normal pharynx, no angioedema, normal voice, TMs + canals normal, uvula midline, moist mucus membranes, other - right-sided tonsillar exudate, mild pharyngeal erythema and swelling, uvula midline Neck: full range of motion, no bony tend Respiratory: lungs clear, normal breath sounds, no rhonchi, no respiratory distress, no accessory muscle use, no wheezing, speaking full sentences Cardiovascular #1: regular rate, rhythm, no edema Genitourinary: no CVA tenderness Musculoskeletal: back normal, digits/nails normal, gait/station normal, normal range of motion, non-tender Neurologic: alert, oriented x3, responsive, motor strength/tone normal, sensory intact Psychiatric: mood/affect normal Skin: no rash Lymphatic: adenopathy - cervical Medical Decision Making PA Attestation Dr. De Paz is my supervising Physician whom patient management has been discussed with. Diagnostic Impression: Primary Impression: Tonsillitis Additional Impression: Upper respiratory infection ER Course Pt presents to ED c/o sore throat and cough. DDX considered but are not limited to influenza, viral URI, strep throat, pharyngitis, tonsillitis, viral URI, pneumonia, strep throat, rhinitis, sinusitis, otitis media. no uvula deviation, no neck stiffness, no stridor, no tripoding, low suspicion for peritonsillar abscess. VITAL SIGNS are WNL, patient is afebrile ER COURSE: Right sided tonsillar exudates, pharyngeal erythema, lymphadenopathy, likely pharyngitis. Will provide antibiotic treatment. Take Tylenol for relief of symptoms. saltwater gargles. Drink plenty of fluids. Symptomatic treatment. Lungs clear to auscultation, no wheezes, rhonci or rales. patient afebrile. Low suspicion for pneumonia, will not order CXR at this time. Likely viral etiology of symptoms. Symptomatic treatment. Advised on use of OTC Claritin for ear fullness symptoms. Followup with PCP for further treatment and/or referral as needed. Advised patient on voice rest for voice symptoms. Will provide Rx for cough medication. ER precautions given. DISCHARGE: Rx provided for amoxicillin -Rx given for Acetaminophen for fever/pain. -Rx provided for Tessalon Perles At this time pt is stable for d/c to home. Patient resting comfortably, in no acute distress, nontoxic appearing, talking without difficulty Patient to take medications as instructed. Will provide with patient care instructions and any necessary prescriptions. Care plan and follow-up instructions provided. Patient instructed to follow-up with primary care provider in 3 - 5 days. Patient questions asked and answered. ER precautions given. Patient instructed to return to ER immediately for any new or worsening of symptoms including but not limited to fever, SOB, difficulty swallowing. - Please note that this Emergency Department Report was dictated using [employer] technician technology software, occasionally this can lead to erroneous entry secondary to interpretation by the dictation equipment. Last Vital Signs Date Time Temp Pulse Resp B/P (MAP) Pulse Ox O2 Delivery O2 Flow Rate FiO2 02/09/18 19:49 98.6 75 16 116/73 97 Room Air 98.6 Disposition: HOME, SELF-CARE Condition: Stable Scripts Benzonatate* (TESSALON PERLE*) 100 Mg Capsule 100 MG ORAL THREE TIMES A DAY, #30 PERLE Prov: Raza Vidal 02/09/18 Acetaminophen* (TYLENOL EXTRA STRENGTH*) 500 Mg Tablet 500 MG ORAL Q8H PRN for Prn Headache/Temp > 101, #30 TAB 0 Refills Prov: Raza Vidal 02/09/18 Amoxicillin* (AMOXIL*) 500 Mg Capsule 500 MG ORAL EVERY 8 HOURS for 7 Days, #21 CAP Prov: Raza Vidal 02/09/18 Referrals: NON PHYSICIAN (PCP) Patient Instructions: Tonsillitis, [id number], Upper Respiratory Infection, Adult, [id number] Additional Instructions: Followup with primary care provider in 3 -5 days. Salt water gargles Take Tylenol for pain and fever symptoms Drink plenty of water. Take medications as directed. Patient questions asked and answered. ER precautions given, patient instructed to return to ER immediately for any new or worsening of symptoms including but not limited to intractable vomiting, difficulty breathing, inability to eat. Raza Vidal Feb 09, 2018 20:16
[2018-02-09 20:34] VITALS: BP 115/75
== END 2018-02-09 20:19 | disposition home or self-care (01) ==
LOC: EMR 20:05
DX: J03.90 Acute tonsillitis, unspecified (principal); J06.9 Acute upper respiratory infection, unspecified
CPT/HCPCS: 99283

== ENCOUNTER 2018-07-31 12:12 | Emergency (ER) | payer MEDICAID ==
[~2018-07-31] VITALS: Ht 162.6 cm; Wt 78.9 kg
[~2018-07-31 12:12] MED LIST changes: +AMOXICILLIN500 MG ORAL; +TESSALON PERLE100 MG ORAL; +TYLENOL EXTRA500 MG ORAL
[2018-07-31 12:15] VITALS: BP 118/77
--- NOTE | 2018-07-31 12:22 | NUR ---
ED Nurse Note: Pt c/o sore throat x 1 day. Denies any other symptoms. AAO x4, ambulates and speaks in clear sentences.
[2018-07-31] MEDS ORDERED: TYLENOL EXTRA500 MG ORAL (12:28)
[2018-07-31] MEDS ORDERED: AMOXICILLIN500 MG ORAL (12:28)
--- NOTE | 2018-07-31 12:28 | Emergency Room Report ---
History of Present Illness General Chief Complaint: Sore Throat Source: Patient Present Illness HPI 28-year-old female patient presents ER complaining of sore throat since yesterday. Reports history of tonsillitis symptoms in the past, previously seen here in this ER. Reports subjective fever at home and chills, currently afebrile in ER. Also complaining of left sided ear ache during this time. Denies ear drainage. Denies hearing loss. Denies cough. Reports pain with swallowing. Denies chest pain or shortness of breath. Denies difficulty breathing. Denies vomiting or diarrhea. Denies other aggravating or relieving factors. Allergies: Coded Allergies: No Known Allergies (Verified , 02/09/18) Patient History Past Medical History: see triage record Last Menstrual Period: 07/11/18 Reviewed Nursing Documentation: PMH: Agreed; PSxH: Agreed Nursing Documentation-PMH Past Medical History: No Stated History Hx Cardiac Problems: No Review of Systems All Other Systems: negative except mentioned in HPI Physical Exam Vital Signs Date Time Temp Pulse Resp B/P (MAP) Pulse Ox O2 Delivery O2 Flow Rate FiO2 07/31/18 12:15 98.1 99 18 118/77 98 Room Air Sp02 EP Interpretation: reviewed, normal General Appearance: well appearing, no apparent distress, alert, GCS 15, non- toxic Head: normocephalic, atraumatic Eyes: bilateral eye normal inspection, bilateral eye PERRL ENT: hearing grossly normal, normal pharynx, no angioedema, normal voice, TMs + canals normal, uvula midline, moist mucus membranes, tonsillar swelling - Worse on the left side, pharyngeal erythema - Bilaterally, tonsillar exudate - Bilaterally Neck: full range of motion, no meningismus, no bony tend Respiratory: lungs clear, normal breath sounds, no rhonchi, no respiratory distress, no accessory muscle use, no wheezing, speaking full sentences, other - No stridor Cardiovascular #1: regular rate, rhythm, no edema Neurologic: alert, oriented x3, responsive, motor strength/tone normal, sensory intact Skin: no rash Lymphatic: adenopathy - Cervical Medical Decision Making PA Attestation Dr. Ngo is my supervising Physician whom patient management has been discussed with. Diagnostic Impression: Primary Impression: Tonsillitis ER Course Pt presents to ED c/o sore throat. DDX considered but are not limited to influenza, viral URI, strep throat, pharyngitis, tonsillitis. no uvula deviation, no neck stiffness, no stridor, no tripoding, low suspicion for peritonsillar abscess. VITAL SIGNS are WNL, patient is afebrile ER COURSE: Provide with viscous lidocaine and Decadron for swelling symptoms in the ER. tonsillar exudates, pharyngeal erythema, lymphadenopathy, no cough, likely tonsillitis. Will provide antibiotic treatment. Take Tylenol for pain symptom relief. saltwater gargles. Drink plenty of fluids. Symptomatic treatment. ER precautions given. DISCHARGE: Rx provided for amoxicillin -Rx given for Acetaminophen for fever/pain. At this time pt is stable for d/c to home. Patient resting comfortably, in no acute distress, nontoxic appearing, talking without difficulty Patient to take medications as instructed. Will provide with patient care instructions and any necessary prescriptions. Care plan and follow-up instructions provided. Patient instructed to follow-up with primary care provider in 3 - 5 days. Patient questions asked and answered. ER precautions given. Patient instructed to return to ER immediately for any new or worsening of symptoms including but not limited to fever, SOB, difficulty swallowing. - Please note that this Emergency Department Report was dictated using [employer] private duty technology software, occasionally this can lead to erroneous entry secondary to interpretation by the dictation equipment. Last Vital Signs Date Time Temp Pulse Resp B/P (MAP) Pulse Ox O2 Delivery O2 Flow Rate FiO2 07/31/18 12:15 98.1 18 118/77 98 Room Air 07/31/18 12:15 99 Status: improved Disposition: HOME, SELF-CARE Condition: Stable Scripts Acetaminophen* (TYLENOL EXTRA STRENGTH*) 500 Mg Tablet 500 MG ORAL Q8H PRN for Prn Headache/Temp > 101, #30 TAB 0 Refills Prov: Raza Vidal P.A. 07/31/18 Amoxicillin* (AMOXIL*) 500 Mg Capsule 500 MG ORAL EVERY 8 HOURS for 7 Days, #21 CAP Prov: Raza Vidal P.A. 07/31/18 Patient Instructions: Sore Throat, Tonsillitis Additional Instructions: Followup with primary care provider in 3 -5 days. Salt water gargles Take Tylenol for pain and fever symptoms Drink plenty of water. Take medications as directed. Patient questions asked and answered. ER precautions given, patient instructed to return to ER immediately for any new or worsening of symptoms including but not limited to intractable vomiting, difficulty breathing, inability to eat, neck stiffness, unable to open mouth. Raza Vidal. Jul 31, 2018 12:28
[2018-07-31] MEDS ORDERED: Lidocaine 2% Visc 15ml soln ORAL ONE (12:30)
[2018-07-31] MEDS ORDERED: Dexamethasone 4mg/ml vial IM ONE (12:30)
[2018-07-31 12:36] VITALS: BP 123/80
--- NOTE | 2018-07-31 12:36 | NUR ---
ED Nurse Note: Pt seen, treated, medically cleared for discharge by Health Care Provider. Discharge instructions/ACI given and explained to pt and verbalized understanding of teachings. All medical devices such as ID band removed. Pt is AAO x4, ambulatory and left with all personal belongings.
== END 2018-07-31 12:36 | disposition home or self-care (01) ==
LOC: EMR 12:30
DX: J03.90 Acute tonsillitis, unspecified (principal)
CPT/HCPCS: 96372; 99283; J1100

== ENCOUNTER 2019-01-04 10:05 | Emergency (ER) | payer MEDICAID ==
[~2019-01-04] VITALS: Ht 162.6 cm; Wt 81.6 kg
[2019-01-04 10:29] VITALS: BP 128/86
--- NOTE | 2019-01-04 10:30 | NUR ---
ED Nurse Note: pt walked in due to cough congestion x 3 days, pt stated she is been having chest pain whenever she coughs, pt denies taking any meds, vss, not in distress. pt is seen by joel. will continue to monitor
--- NOTE | 2019-01-04 10:30 | Emergency Room Report ---
History of Present Illness General Chief Complaint: Upper Respiratory Illness Source: Patient Present Illness HPI Patient presents with reports of nasal congestion cough Productive sputum patient also reports midepigastric And left lower rib cage pain denies any pleurisy denies any shortness of breath Denies any vomiting or diarrhea denies any headache Patient reports that she feels That when she went to class this morning It was extremely cold and some of her symptoms started then Allergies: Coded Allergies: No Known Allergies (Verified , 02/09/18) Patient History Past Medical History: see triage record Last Menstrual Period: pt. has IUD Now: No Reviewed Nursing Documentation: PMH: Agreed; PSxH: Agreed Nursing Documentation-PMH Past Medical History: No Stated History Hx Cardiac Problems: No Review of Systems All Other Systems: negative except mentioned in HPI Physical Exam Vital Signs Date Time Temp Pulse Resp B/P (MAP) Pulse Ox O2 Delivery O2 Flow Rate FiO2 01/04/19 10:11 98.4 80 18 128/86 (100) 99 Room Air Sp02 EP Interpretation: reviewed, normal General Appearance: well appearing, no apparent distress Head: normocephalic, atraumatic Eyes: bilateral eye PERRL, bilateral eye EOMI ENT: hearing grossly normal, normal pharynx, TMs + canals normal, uvula midline Neck: full range of motion, supple, no meningismus, no bony tend Respiratory: lungs clear, normal breath sounds, no rhonchi, no respiratory distress, no retraction, no accessory muscle use Cardiovascular #1: normal peripheral pulses, regular rate, rhythm, no edema, no gallop, no JVD, no murmur Gastrointestinal: normal bowel sounds, non tender, soft, no mass, no organomegaly, non-distended, no guarding, no hernia, no pulsatile mass, no rebound Genitourinary: no CVA tenderness Musculoskeletal: normal inspection Neurologic: oriented x3, responsive, clipping marker III-XII nml as tested, motor strength/ tone normal, sensory intact Psychiatric: mood/affect normal Skin: no rash Lymphatic: normal inspection, no adenopathy Medical Decision Making Diagnostic Impression: Primary Impression: Upper respiratory infection ER Course Given the patient's history and presentation multiple differentials and consideration including but not limited to pneumonia, flu, bronchitis, URI Given the patient's symptoms x-ray imaging was obtained no obvious acute pathology is seen Patient continues to look well and is hemodynamically stable respirations appropriate And appears to have findings consistent with viral URI patient will have initial conservative outpatient trial Chest X-Ray Diagnostic Results Chest X-Ray Diagnostic Results : Chest X-Ray Ordered: Yes # of Views/Limited/Complete: 1 View Indication: Chest Pain EP Interpretation: Yes Interpretation: no consolidation, no effusion, no pneumothorax Impression: No acute disease Electronically Signed by: Roman Ngo DO Last Vital Signs Date Time Temp Pulse Resp B/P (MAP) Pulse Ox O2 Delivery O2 Flow Rate FiO2 01/04/19 10:11 98.4 80 18 128/86 (100) 99 Room Air Status: improved Disposition: HOME, SELF-CARE Condition: Improved Scripts Oxymetazoline HCl (Afrin) 15 Ml [place] 2 SPRAY NASAL TWICE A DAY for 7 Days, SPRAY Prov: Roman Ngo DO 01/04/19 Additional Instructions: Patient is provided with the discharge instructions notified to follow up with primary doctor in the next 2-3 days otherwise return to the er with any worsening symptoms. Please note that this report is being documented using [employer] technology. This can lead to erroneous entry secondary to incorrect interpretation by the dictating instrument. Roman Ngo DO Jan 04, 2019 10:30
[2019-01-04] MEDS ORDERED: AFRIN NASAL SPR30 ML NASAL (10:43)
[2019-01-04 10:55] VITALS: BP 128/86
--- NOTE | 2019-01-04 10:55 | NUR ---
ER DISCHARGE NOTE: Patient is cleared to be discharged per ERMD, pt is aox4, on room air, with stable vital signs. pt was given dc and prescription instructions, pt was able to verbalize understanding, pt id band removed without complications. pt is able to ambulate with steady gait. pt took all belongings.
--- NOTE | 2019-01-04 11:38 | Diagnostic Imaging Report ---
Indication: Reason For Exam: COUGH Technique: One view of the chest Comparison: 06/10/2015 Findings: Lungs and pleural spaces are clear. Heart size is normal . No significant interim change Impression: No acute process
== END 2019-01-04 10:55 | disposition home or self-care (01) ==
LOC: EMR 10:35
DX: J06.9 Acute upper respiratory infection, unspecified (principal)
CPT/HCPCS: 71045; 99283

== ENCOUNTER 2019-11-28 12:33 | Emergency (ER) | payer MEDICAID ==
[~2019-11-28] VITALS: Ht 165.1 cm; Wt 80.7 kg
[~2019-11-28 12:33] MED LIST changes: +AFRIN NASAL SPR30 ML NASAL
[2019-11-28 12:41] VITALS: BP 120/75
--- NOTE | 2019-11-28 13:08 | Emergency Room Report ---
History of Present Illness General Chief Complaint: Skin Rash/Abscess Source: Patient Present Illness HPI 29-year-old female with no signal past medical history here complaining of a painful mass in the right maxilla x4 days. Reports that she has been dealing with spiders at home and saw the spider biting her cheek 4 days ago. Denies any pus drainage. Complains of 5-10 pain, complains of minimal pruritus. Denies any facial numbness or tingling. Denies pain radiation, fever and chills , cough and congestion, shortness of breath. Has not taken medication for symptom relief. Denies . Allergies: Coded Allergies: No Known Allergies (Verified , 02/09/18) COVID-19 Screening Contact w/high risk pt: No Experienced COVID-19 symptoms?: No COVID-19 Testing performed WORKERS COMPENSATION CONSULTANT: No Patient History Past Medical History: see triage record Past Surgical History: none Pertinent Family History: none Now: No Immunizations: UTD Reviewed Nursing Documentation: PMH: Agreed; PSxH: Agreed Nursing Documentation-PMH Past Medical History: No Stated History Hx Cardiac Problems: No Review of Systems All Other Systems: negative except mentioned in HPI Physical Exam Vital Signs Date Time Temp Pulse Resp B/P (MAP) Pulse Ox O2 Delivery O2 Flow Rate FiO2 11/28/19 12:36 98.2 90 19 125/80 (95) 96 Room Air Sp02 EP Interpretation: reviewed, normal General Appearance: no apparent distress, alert, GCS 15, non-toxic Head: normocephalic, atraumatic Eyes: bilateral eye normal inspection, bilateral eye PERRL ENT: hearing grossly normal, normal pharynx, no angioedema, normal voice Neck: normal inspection Respiratory: chest non-tender, lungs clear, normal breath sounds, no rhonchi, speaking full sentences Cardiovascular #1: regular rate, rhythm, no murmur Gastrointestinal: normal bowel sounds, non tender, soft, non-distended, no guarding, no rebound Rectal: deferred Musculoskeletal: back normal, other - Cystic lesion without any pus drainage in the right maxillary Neurologic: alert, motor strength/tone normal, oriented x3, sensory intact, responsive, speech normal Psychiatric: judgement/insight normal, memory normal, mood/affect normal, no suicidal/homicidal ideation Skin: other - Cystic lesion appears to be secondary to spider bite right maxilla without any pus drainage Lymphatic: no adenopathy Medical Decision Making PA Attestation All my diagnosis and treatment plans were reviewed ad discussed with my supervising physician Dr. Villarreal Diagnostic Impression: Primary Impression: Cyst of face Additional Impression: Spider bite ER Course 29-year-old female with no signal past medical history here complaining of a painful mass in the right maxilla x4 days. Reports that she has been dealing with spiders at home and saw the spider biting her cheek 4 days ago. Denies any pus drainage. Complains of 5-10 pain, complains of minimal pruritus. Denies any facial numbness or tingling. Denies pain radiation, fever and chills , cough and congestion, shortness of breath. Has not taken medication for symptom relief. Denies . Ddx considered but are not limited to : Cellulitis, facial cyst, abscess, superficial infection, abscess Vital signs: are WNL, pt. is afebrile H&PE are most consistent with: Facial cyst ORDERS: Augmentin, hydrocortisone cream, Motrin ED INTERVENTIONS: None required at this time. Patient was evaluated in the context of the global COVID-19 pandemic, which necessitated consideration that the patient might be at risk for infection with the SARS-COV-2 virus that causes COVID-19. Institutional protocols and algorithms that pertain to the evaluation of patients at risk for COVID-19 are in a state of rapid change based on information relieved by multiple regulatory bodies including the CDC and the federal and state organizations. These policies and algorithms were followed during the patient's care in the ED. DISCHARGE: At this time pt. is stable for d/c to home. Will provide printed patient care instructions, and any necessary prescriptions. Care plan and follow up instructions have been discussed with the patient prior to discharge. No I&D needed as this is not an abscess, patient take medication as directed, follow primary care provider, avoid irritating the area, if worsening symptoms return to the emergency room Last Vital Signs Date Time Temp Pulse Resp B/P (MAP) Pulse Ox O2 Delivery O2 Flow Rate FiO2 11/28/19 12:41 98.0 80 16 120/75 98 Room Air Disposition: HOME, SELF-CARE Condition: Stable Scripts Hydrocortisone 1% Oint (Hydrocortisone 1% Oint*) Y Oint 2 GM TP BID, #28 GM Prov: Juventino Wagoner 11/28/19 Ibuprofen* (MOTRIN*) 600 Mg Tablet 600 MG ORAL THREE TIMES A DAY, #20 TAB Prov: Juventino Wagoner 11/28/19 Amoxicillin/Potassium Clav 875-125* (AUGMENTIN 875-125 TABLET*) 1 Each Tablet 1 TAB ORAL TWICE A DAY for 7 Days, #14 TAB Prov: Juventino Wagoner 11/28/19 Referrals: Kaelyn SARABIA,REFERRING (PCP) Patient Instructions: Spider Bite, [id number] Additional Instructions: Take medication as directed, follow-up with your primary care provider, avoid irritating the area, if worsening symptoms return to the emergency room Juventino Wagoner Nov 28, 2019 13:08
[2019-11-28] MEDS ORDERED: HYDROCORTISONE28 G2 TP (13:10)
[2019-11-28] MEDS ORDERED: AUGMENTIN 875-1 EAC1 ORAL (13:10)
[2019-11-28] MEDS ORDERED: IBUPROFEN600 M1 ORAL (13:10)
[2019-11-28 13:12] VITALS: BP 128/77
== END 2019-11-28 13:12 | disposition home or self-care (01) ==
LOC: EMR 12:50
DX: L72.9 Follicular cyst of the skin and subcutaneous tissue, unspecified (principal); T63.301A Toxic effect of unspecified spider venom, accidental (unintentional), initial encounter; Y92.9 Unspecified place or not applicable
CPT/HCPCS: 99282

== ENCOUNTER 2020-04-08 11:08 | Emergency (ER) | payer MEDICAID ==
[~2020-04-08] VITALS: Ht 162.6 cm; Wt 81.6 kg
[~2020-04-08 11:08] MED LIST changes: +AUGMENTIN 875-1 EAC1 ORAL; +HYDROCORTISONE28 G2 TP; +IBUPROFEN600 M1 ORAL
[2020-04-08 11:12] VITALS: BP 134/85
--- NOTE | 2020-04-08 11:12 | NUR ---
ED Nurse Note: Pt walked in to ed c/o cough and nasal congestion onset 1 wk. pt states hx bronchitis. denies fever or sob. temp of 98.3 at triage.
--- NOTE | 2020-04-08 12:10 | Emergency Room Report ---
History of Present Illness General Chief Complaint: Upper Respiratory Illness Source: Patient Present Illness HPI The patient presents with several days of cough, sore throat and now yellow phlegm. The patient has a history of asthma. She denies any fevers or chills. There is no ear pain. She denies nausea, vomiting and diarrhea. She has no pleuritic chest pain, hemoptysis or dyspnea on exertion. She does have some chest pain when she coughs. She rates his pain 4/10 to me but denies pain to triage nurse. She does not have an inhaler. She does not recognize the name prednisone. She has heard herself wheezing somewhat. She is concerned as she works for [employer]. 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 Therefore she is uncertain if she has had contact with COVID-19 positive people. She feels stressed at work. Patient has an IUD and her last period was in December. She says she cannot be at this time. No palpitations, dysuria, abdominal pain, joint pain, rashes, visual changes, dizziness, headache. Allergies: Coded Allergies: No Known Allergies (Verified , 02/09/18) COVID-19 Screening Contact w/high risk pt: No Experienced COVID-19 symptoms?: Yes COVID-19 Testing performed GUEST RELATIONS OFFICER: No Patient History Past Medical History: see triage record Past Surgical History: other - Ectopic and salpingectomy Social History: Denies: smoking Social History Narrative Works for [employer] Last Menstrual Period: December -has IUD Now: No Reviewed Nursing Documentation: PMH: Agreed; PSxH: Agreed Nursing Documentation-PMH Hx Cardiac Problems: No Review of Systems All Other Systems: negative except mentioned in HPI Physical Exam Vital Signs Date Time Temp Pulse Resp B/P (MAP) Pulse Ox O2 Delivery O2 Flow Rate FiO2 04/08/20 11:11 98.2 64 18 134/85 (101) 99 Room Air Sp02 EP Interpretation: reviewed, normal General Appearance: well appearing, no apparent distress, GCS 15 Head: normocephalic Eyes: bilateral eye normal inspection, bilateral eye PERRL, bilateral eye EOMI ENT: normal pharynx, no angioedema, TMs + canals normal, moist mucus membranes Neck: supple Respiratory: no respiratory distress, wheezing - Minimal expiratory Cardiovascular #1: regular rate, rhythm Cardiovascular #2: 2+ radial (R) Gastrointestinal: normal inspection, normal bowel sounds, non-distended Musculoskeletal: back normal, normal range of motion, gait/station normal Neurologic: alert, oriented x3, grossly normal Psychiatric: mood/affect normal Skin: no rash, warm/dry, other - Fully clothed Medical Decision Making Diagnostic Impression: Primary Impression: Asthmatic bronchitis Qualified Codes: J45.31 - Mild persistent asthma with (acute) exacerbation ER Course Patient presents with upper respiratory symptoms with a history of asthma. Differential includes COVID-19 upper respiratory infection, viral bronchitis, asthmatic bronchitis amongst others. Based on history and physical pulmonary embolus extremely unlikely. Patient oxygenating well and in no respiratory distress at this time. The patient is given Motrin and Robitussin-DM. Patient advised to undergo Covid testing in the next couple of days. Also advised and treatment of what is diagnosed as asthmatic bronchitis at this time. No medical emergency at this time. Patient stable for outpatient observation and treatment. Last Vital Signs Date Time Temp Pulse Resp B/P (MAP) Pulse Ox O2 Delivery O2 Flow Rate FiO2 04/08/20 12:33 98.2 72 16 130/74 98 Room Air Status: improved Disposition: HOME, SELF-CARE Condition: Improved Scripts Ibuprofen* (MOTRIN*) 600 Mg Tablet 600 MG ORAL Q6H PRN for FOR PAIN, #16 TAB 0 Refills Prov: Jersey Mae MD 04/08/20 Guaifenesin/Codeine Phos* (ROBITUSSIN AC*) 118 Ml Liquid 5 ML ORAL Q6H PRN for For Cough, #90 ML 0 Refills Prov: Jersey Mae MD 04/08/20 Albuterol Sulfate* (Albuterol Sulfate Hfa*) 8.5 Gm Hfa.aer.ad 2 PUFF INH Q6H, #1 INH 1 Refill Prov: Jersey Mae MD 04/08/20 Referrals: [facility],REFERRING (PCP) Jersey Mae MD Apr 08, 2020 12:10
[2020-04-08] MEDS ORDERED: GUAIFENESIN-CO118 M1 ORAL (12:24)
[2020-04-08] MEDS ORDERED: ALBUTEROL SULF8.5 G1 INH (12:24)
[2020-04-08] MEDS ORDERED: IBUPROFEN600 M1 ORAL (12:24)
[2020-04-08] MEDS ORDERED: guaiFENesin /DM 10ml syrup ORAL PRN (12:30)
[2020-04-08 12:33] VITALS: BP 130/74
--- NOTE | 2020-04-08 12:33 | NUR ---
ED Nurse Note: Pt cleared by ERMD for discharge. DC instructions/prescription was given and explained to pt and verbalized understanding of teachings. All medical deviecs such as ID band removed. Pt is AAO x4, ambulatory and left with all personal belongings.
== END 2020-04-08 12:33 | disposition home or self-care (01) ==
LOC: EMR 11:46
DX: J45.31 Mild persistent asthma with (acute) exacerbation (principal); Z97.5 Presence of (intrauterine) contraceptive device
CPT/HCPCS: 99282

== ENCOUNTER 2020-05-14 12:18 | Emergency (ER) | payer MEDICAID ==
[~2020-05-14] VITALS: Ht 162.6 cm; Wt 81.6 kg
[~2020-05-14 12:18] MED LIST changes: +ALBUTEROL SULF8.5 G1 INH; +GUAIFENESIN-CO118 M1 ORAL
--- NOTE | 2020-05-14 12:40 | NUR ---
ED Nurse Note: pt presents to ED c/o cough and sore throat x6 days. 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 pt states that it hurts to swallow and she has had body aches and a runny nose. pt states she has been drinking teas and taking tylenol and dayquil at home/
[2020-05-14 12:51] VITALS: BP 134/92
--- NOTE | 2020-05-14 13:04 | Emergency Room Report ---
History of Present Illness General Chief Complaint: Flu Like Symptoms Source: Patient Present Illness HPI 29-year-old female with history of asthma currently using albuterol inhaler here complaining of 3 days of cough, shortness of breath, congestion, sore throat and bilateral eye irritation with yellow discharge. Denies fever and chills, diarrhea, loss of taste and smell. Has not taken medication for symptom relief. Appears to be stable with stable vital signs. Denies wearing contact lenses, denies photophobia blurred vision. Denies headache and dizziness. Denies . Denies tobacco smoke and drug use Allergies: Coded Allergies: No Known Allergies (Verified , 02/09/18) COVID-19 Screening Contact w/high risk pt: No Experienced COVID-19 symptoms?: No COVID-19 Testing performed LENGTH CONTROL TESTER: No Patient History Past Medical History: see triage record Past Surgical History: none Pertinent Family History: none Last Menstrual Period: pt. on iud Now: No Immunizations: UTD Reviewed Nursing Documentation: PMH: Agreed; PSxH: Agreed Nursing Documentation-PMH Hx Cardiac Problems: No Review of Systems All Other Systems: negative except mentioned in HPI Physical Exam Vital Signs Date Time Temp Pulse Resp B/P (MAP) Pulse Ox O2 Delivery O2 Flow Rate FiO2 05/14/20 12:30 97.5 78 19 134/92 (106) 99 Room Air Sp02 EP Interpretation: reviewed, normal General Appearance: no apparent distress, alert, GCS 15, non-toxic Head: normocephalic, atraumatic Eyes: bilateral eye other - Conjunctive are injected ENT: hearing grossly normal, normal pharynx, no angioedema, normal voice Neck: full range of motion, supple Respiratory: no respiratory distress, no retraction, no accessory muscle use Cardiovascular #1: normal peripheral pulses, regular rate, rhythm, no edema Gastrointestinal: soft Genitourinary: no CVA tenderness Musculoskeletal: back normal Neurologic: alert, motor strength/tone normal, oriented x3, sensory intact, responsive, speech normal Psychiatric: judgement/insight normal, memory normal, mood/affect normal, no suicidal/homicidal ideation Skin: no rash Lymphatic: no adenopathy Medical Decision Making PA Attestation All my diagnosis and treatment plans were reviewed ad discussed with my supervising physician Dr. Natarajan Diagnostic Impression: Primary Impression: Upper respiratory infection Additional Impression: Bacterial conjunctivitis ER Course 29-year-old female with history of asthma currently using albuterol inhaler here complaining of 3 days of cough, shortness of breath, congestion, sore throat and bilateral eye irritation with yellow discharge. Denies fever and chills, diarrhea, loss of taste and smell. Has not taken medication for symptom relief. Appears to be stable with stable vital signs. Denies wearing contact lenses, denies photophobia blurred vision. Denies headache and dizziness. Denies . Denies tobacco smoke and drug use Ddx considered but are not limited to: strep pharyngitis, URI, tonsillitis, peritonsillar abscess, influneza, coronavirus Vital signs: are WNL, pt. is afebrile H&PE are most consistent with: Upper respiratory infection, suspected COVID-19, bacterial conjunctivitis ORDERS: Chest x-ray, azithromycin, prednisone, Phenergan, albuterol, ofloxacin ophthalmic ED INTERVENTIONS: None required at this time. DISCHARGE: At this time pt. is stable for d/c to home. Will provide printed patient care instructions, and any necessary prescriptions. Care plan and follow up instructions have been discussed with the patient prior to discharge. Advised patient to get tested for Covid, gave a list of testing clinics, quarantine, if worsening symptoms return to emergency Chest X-Ray Diagnostic Results Chest X-Ray Diagnostic Results : Chest X-Ray Ordered: Yes # of Views/Limited/Complete: 1 View Indication: Shortness of Breath EP Interpretation: Yes MECHE Xray: Interpretation reviewed, by supervising MD, and agrees with findings. Interpretation: no consolidation, no effusion, no pneumothorax Impression: No acute disease Electronically Signed by: Juventino Gomez PA-C Last Vital Signs Date Time Temp Pulse Resp B/P (MAP) Pulse Ox O2 Delivery O2 Flow Rate FiO2 05/14/20 12:51 78 19 Room Air 05/14/20 12:51 97.5 134/92 99 Disposition: HOME, SELF-CARE Condition: Stable Scripts Ofloxacin (Ofloxacin) 5 Ml Drops 2 DROP OP Q6HR for 7 Days, #5 ML Prov: Juventino Wagoner 05/14/20 Promethazine Hcl (PROMETHAZINE HCL*) 6.25 Mg/5 Ml Syrup 5 ML ORAL Q8H, #120 ML 0 Refills Prov: Juventino Wagoner 05/14/20 Albuterol Sulfate (VENTOLIN HFA) 18 Gm Hfa.aer.ad 2 PUFFS INH EVERY 6 HOURS, #18 GM 0 Refills Prov: Juventino Wagoner 05/14/20 Prednisone* (PREDNISONE*) 20 Mg Tablet 40 MG ORAL DAILY for 5 Days, #10 TAB Prov: Juventino Wagoner 05/14/20 Azithromycin* (ZITHROMAX*) 250 Mg Tablet 250 MG ORAL DAILY, #6 TAB 0 Refills Take two tables once daily for 1 day, then one tablet once daily for 4 days. Prov: Juventino Wagoner 05/14/20 Patient Instructions: Bacterial Conjunctivitis, [id number], Upper Respiratory Infection, Adult, [id number] Additional Instructions: Take medication as directed, follow primary care provider, get tested for Covid, if worsening symptoms return to the emergency room. Quarantine yourself Juventino Wagoner May 14, 2020 13:04
[2020-05-14] MEDS ORDERED: PREDNISONE20 MG ORAL (13:07)
[2020-05-14] MEDS ORDERED: OFLOXACIN10 ML OP (13:07)
[2020-05-14] MEDS ORDERED: ZITHROMAX250 MG ORAL (13:07)
[2020-05-14] MEDS ORDERED: VENTOLIN HFA18 GM INH (13:07)
[2020-05-14] MEDS ORDERED: PROMETHAZI6.25 MG/1 ORAL (13:07)
[2020-05-14 13:15] VITALS: BP 134/92
--- NOTE | 2020-05-14 13:15 | NUR ---
ER DISCHARGE NOTE: Patient is cleared to be discharged per ERMD, pt is aox4, on room air, with stable vital signs. pt was given dc and prescription instructions, pt was able to verbalize understanding, pt id band and iv site removed without complications. pt is able to ambulate with steady gait. pt took all belongings. Addendum: 05/14/20 at 1412 by MEGAN correction: pt did not Have IV access
--- NOTE | 2020-05-14 14:57 | Diagnostic Imaging Report ---
Indication: Shortness of breath Technique: One view of the chest Comparison: 01/04/2019 Findings: Lungs and pleural spaces are clear. Heart size is normal. No significant change Impression: No acute process
== END 2020-05-14 13:15 | disposition home or self-care (01) ==
LOC: EMR 13:04
DX: J06.9 Acute upper respiratory infection, unspecified (principal); H10.89 Other conjunctivitis; B96.89 Other specified bacterial agents as the cause of diseases classified elsewhere
CPT/HCPCS: 71045; 99283

== ENCOUNTER 2020-06-06 10:35 | Emergency (ER) | payer MEDICAID ==
[~2020-06-06] VITALS: Ht 162.6 cm; Wt 81.6 kg
[~2020-06-06 10:35] MED LIST changes: +OFLOXACIN10 ML OP; +PREDNISONE20 MG ORAL; +PROMETHAZI6.25 MG/1 ORAL; +VENTOLIN HFA18 GM INH
[2020-06-06] MEDS ORDERED: NAPROXEN500 M1 ORAL (10:58)
[2020-06-06] MEDS ORDERED: FLONASE ALLERG9.9 ML NS (10:58)
[2020-06-06] MEDS ORDERED: AFRIN NASAL SPR30 ML NASAL (10:58)
[2020-06-06] MEDS ORDERED: ZYRTEC10 M3 ORAL (10:58)
[2020-06-06 11:04] VITALS: BP 138/69
[2020-06-06 11:08] VITALS: BP 136/86
--- NOTE | 2020-06-06 11:08 | Emergency Room Report ---
History of Present Illness General Chief Complaint: Flu Like Symptoms Source: Patient Present Illness HPI Disclaimer: Please note that this report is being documented using DRAGON technology. This can lead to erroneous entry secondary to incorrect interpretation by the dictating instrument. HPI: 29-year-old female, history of bronchitis, presents for nasal congestion, frontal headache, cough. She describes a fever at home yesterday. She denies any sick contacts. She denies any shortness of breath or wheezing. She was seen last month for upper respiratory tract infection. She states she was last tested for COVID-19 last month and was negative. She has been taking ibuprofen with minimal improvement. 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 COVID-19 Screening: Negative COVID-19 COVID-19 Testing Source: 1 month ago Patient History Now: No - IUD Reviewed Nursing Documentation: PMH: Agreed; PSxH: Agreed Nursing Documentation-PMH Past Medical History: No History, Except For Hx Cardiac Problems: No Review of Systems All Other Systems: negative except mentioned in HPI Physical Exam Vital Signs Date Time Temp Pulse Resp B/P (MAP) Pulse Ox O2 Delivery O2 Flow Rate FiO2 06/06/20 10:40 98.2 97 20 140/92 (108) 96 Room Air Sp02 EP Interpretation: reviewed, normal General Appearance: well appearing, no apparent distress Head: normocephalic, atraumatic Eyes: bilateral eye PERRL, bilateral eye EOMI ENT: hearing grossly normal, TMs + canals normal, moist mucus membranes, nasal congestion, other - Frontal sinus tenderness noted Neck: full range of motion, supple Respiratory: lungs clear, normal breath sounds, no rhonchi, no respiratory distress, no retraction, no wheezing Cardiovascular #1: normal peripheral pulses, regular rate, rhythm, no murmur Gastrointestinal: non tender, soft, non-distended, no guarding Neurologic: alert, oriented x3, no focal defects Skin: normal color, warm/dry Medical Decision Making Diagnostic Impression: Primary Impression: Sinusitis ER Course Differential diagnosis included but not limited to sinusitis, sinus headache, URI, did consider COVID-19. On arrival patient in no acute distress. Afebrile. Stable vital signs. She had some mild sinus tenderness. And main complaint was nasal discharge. Will treat with Flonase, nasal decongestant, antihistamines. I did refer her for outpatient coronavirus testing. Otherwise no acute distress nontoxic-appearing stable for discharge. Last Vital Signs Date Time Temp Pulse Resp B/P (MAP) Pulse Ox O2 Delivery O2 Flow Rate FiO2 06/06/20 10:40 98.2 97 20 140/92 (108) 96 Room Air Disposition: HOME, SELF-CARE Condition: Stable Scripts Naproxen* (NAPROXEN*) 500 Mg Tablet. 500 MG ORAL TWICE A DAY PRN for For Pain, #20 TAB Prov: Ruel Ornelas M.D. 06/06/20 Cetirizine Hcl (ZYRTEC) 10 Mg Capsule 10 MG ORAL DAILY, #30 CAP 0 Refills Prov: Ruel Ornelas M.D. 06/06/20 Fluticasone Propionate (Flonase Allergy Relief) 9.9 Ml [place].susp 9.9 ML NS DAILY for 30 Days, EA Prov: Ruel Ornelas M.D. 06/06/20 Oxymetazoline HCl (Afrin) 15 Ml [place] 2 SPRAY NASAL TWICE A DAY for 7 Days, SPRAY Prov: Ruel Ornelas M.D. 06/06/20 Patient Instructions: Sinusitis, Adult, [id number], Sinus Headache, [id number] Additional Instructions: Patient is instructed to follow-up with her primary care doctor, primary care clinic or critical access hospital clinic in 1 to 2 days. Patient instructed to return for any worsening symptoms or concerns. Please visit the following website to arrange outpatient testing through [facility] for free [email or web address] Ruel Ornelas M.D. Jun 06, 2020 11:08
== END 2020-06-06 11:02 | disposition home or self-care (01) ==
LOC: EMR 10:50
DX: J32.9 Chronic sinusitis, unspecified (principal)
CPT/HCPCS: 99282